=== PATIENT | female | born 1970 | race Caucasian/White ===

== ENCOUNTER 2021-06-02 22:15 | Emergency (ER) | payer MEDICAID ==
[~2021-06-02] VITALS: Ht 165.1 cm; Wt 66.7 kg
--- NOTE | 2021-06-02 22:30 | NUR ---
TO ER BED9. 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 SHARP RADIATING TO BACK 10/10 P/S. PT STATES SHE WAS SITTING TALKING TO FRIENDS WHEN PAIN BEGAN. DENIES N/V. NOT IN RESPIRATORY DISTRESS. CONNECTED TO MONITOR. AWAITING MD DIAZ
[2021-06-02] MEDS ORDERED: LORAZEPAM INJ 2 MG/ML VIAL ONE (22:36)
[2021-06-02] MEDS: LORAZEPAM INJ 2 MG/ML VIAL IV ONE (22:46)
--- NOTE | 2021-06-02 22:49 | NUR ---
IV LINE ESTABLISHED.RAC 20G BLOOD COLLECTED AND SENT TO LAB
[2021-06-02 23:02] LABS: BASOPHILS % (AUTO) 0.4 % (0.0-2.0); EOSINOPHILS % (AUTO) 1.5 % (0.0-6.0); HEMATOCRIT 38 % (33-45); HEMOGLOBIN 12.5 g/dL (11.5-14.8); LYMPHOCYTES # (AUTO) 3.2 K/uL (0.8-4.8); LYMPHOCYTES % (AUTO) 36.5 % (20.0-44.0); MEAN CORPUSCULAR HGB CONC 33 g/dl (31.0-36.0); MEAN CORPUSCULAR VOLUME 88 fL (82-100); MONOCYTES # (AUTO) 0.6 K/uL (0.1-1.30); MONOCYTES % (AUTO) 6.4 % (2.0-12.0); NEUTROPHILS # (AUTO) 4.8 K/uL (1.8-8.9); NEUTROPHILS % (AUTO) 55.2 % (43.0-81.0); PLATELET COUNT (AUTO) 313 K/uL (150-450); RED BLOOD CELL COUNT(AUTO) 4.31 MIL/uL (4.0-5.2); WHITE BLOOD COUNT (AUTO) 8.7 K/uL (4.3-11.0)
[2021-06-02 23:19] LABS: D-DIMER 0.19 mg/L(FEU (0.17-0.50)
[2021-06-02 23:37] LABS: CARBON DIOXIDE 28 mmol/L (21-32); CHLORIDE 105 mmol/L (98-107); CREATININE 0.7 mg/dL (0.6-1.3); GLUCOSE 106 mg/dL (74-106); POTASSIUM 3.9 mmol/L (3.5-5.1); SODIUM SERUM 142 mmol/L (136-145); UREA NITROGEN, BLOOD 16 mg/dL (7-18)
[2021-06-02 23:42] LABS: ALANINE AMINOTRANSFERASE 24 U/L (12-78); ALBUMIN 4.2 g/dL (3.4-5.0); ALKALINE PHOSPHATASE 110 U/L (46-116); ASPARTATE AMINOTRANSFERASE 18 U/L (15-37); BILIRUBIN,DIRECT 0.1 mg/dL (0.0-0.2); BILIRUBIN,TOTAL 0.1 mg/dL (0.2-1.0); TOTAL PROTEIN, SERUM 7.7 g/dL (6.4-8.2)
[2021-06-02] MEDS ORDERED: KETOROLAC TROMETHAMINE INJ 30 MG/ML VIAL ONE (23:48)
[2021-06-02] MEDS: KETOROLAC TROMETHAMINE INJ 30 MG/ML VIAL IV ONE (23:51)
[2021-06-03] MEDS ORDERED: MAG HYDROX/AL HYDROX/SIMETH 30 ML UDC ONE (00:14)
[2021-06-03] MEDS ORDERED: LIDOCAINE VISCOUS 2% UD 15 ML UDC ONE (00:15)
[2021-06-03] MEDS: MAG HYDROX/AL HYDROX/SIMETH 30 ML UDC PO ONE (00:20)
[2021-06-03] MEDS: LIDOCAINE VISCOUS 2% UD 15 ML UDC MM ONE (00:20)
--- NOTE | 2021-06-03 00:44 | NUR ---
IV removed. Catheter intact and site benign. Pressure and 4x4 applied to site. No bleeding noted.
--- NOTE | 2021-06-03 00:55 | NUR ---
Patient discharged to home in stable condition. Written and verbal after care instructions given. Patient verbalizes understanding of instruction.
[2021-06-03 01:07] VITALS: BP 136/79
== END 2021-06-03 01:08 | disposition home or self-care (01) ==
LOC: EDBD 22:18 → ER 22:18
DX: F41.0 Panic disorder [episodic paroxysmal anxiety] (principal); K21.9 Gastro-esophageal reflux disease without esophagitis; F17.200 Nicotine dependence, unspecified, uncomplicated
CPT/HCPCS: 36415; 71045; 80048; 80076; 84484; 85025; 85378; 85730; 93005; 96374; 96375; 99285; J1885; J2060